=== PATIENT | male | born 2000 | race Caucasian/White ===

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

== ENCOUNTER 2022-02-09 12:27 | Emergency (ER) | payer OTHER ==
[~2022-02-09] VITALS: Ht 177.8 cm; Wt 81.8 kg
[2022-02-09 14:20] VITALS: TEMP 97.9
[2022-02-09] MEDS ORDERED: ZOFRAN ODT4 MG PO (17:06)
[2022-02-09 18:13] VITALS: BP 138/77; PULSE 78
== END 2022-02-09 18:13 | disposition home or self-care (01) ==
LOC: COL.ER 12:27
DX: F07.81 Postconcussional syndrome (principal); Z28.310 Unvaccinated for COVID-19